=== PATIENT | female | born 1945 | race Caucasian/White ===

== ENCOUNTER 2017-11-04 02:14 | Emergency (ER) | payer MEDICARE, OTHER ==
[~2017-11-04] VITALS: Ht 152.4 cm; Wt 61.2 kg
[~2017-11-04 02:14] MED LIST: ANASTROZOLE1 MG PO; ASPIR 8181 M1; BENICAR20 MG PO; CRESTOR10 MG PO; PREDNISONE 10 M10 MG PO
[2017-11-04] MEDS ORDERED: CENTRUM SILVER1 EAC4 (02:30)
[2017-11-04] MEDS ORDERED: LIPITOR 20 MG T20 M1 (02:30)
[2017-11-04] MEDS ORDERED: VITAMIN D1000 UNI1 (02:31)
[2017-11-04] MEDS ORDERED: SINGULAIR 10 MG10 M1 (02:31)
[2017-11-04] MEDS ORDERED: TYLENOL325 MG (02:32)
[2017-11-04 03:31] LABS: URINE BILIRUBIN NEGATIVE (Negative); URINE BLOOD NEGATIVE (Negative); URINE CLARITY CLEAR; URINE COLOR YELLOW; URINE GLUCOSE-RANDOM NEGATIVE (Negative); URINE KETONES NEGATIVE (Negative); URINE LEUKOCYTES-REFLEX 1+ (Negative); URINE NITRITE-REFLEX NEGATIVE (Negative); URINE PROTEIN NEGATIVE (Negative); URINE UROBILINOGEN 0.2 E.U./dl (0.2-1.0)
[2017-11-04 03:59] LABS: SQUAMOUS >10 Many /LPF (0-3)
[2017-11-04 04:00] LABS: CASTS None Seen /LPF (None Seen); CRYSTALS None Seen /LPF (None Seen); URINE RBC 0-2 Rare /HPF (0-2); URINE WBC-REFLEX 6-15 Few /HPF (0-5)
[2017-11-04] MEDS ORDERED: ZOFRAN ODT4 MG PO (04:05)
[2017-11-04] MEDS ORDERED: KEFLEX500 M1 PO (04:05)
[2017-11-04 04:13] VITALS: BP 170/91
--- NOTE | 2017-11-04 17:38 | EKG ---
[place] [address] ELECTROCARDIOGRAM REPORT Name: CALLUM SOTO Tab Room: [facility]#: [id number] Admission: 11/04/17 Attend Phys: Discharge: 11/04/17 Date of : 49 Report #: [id number] THIS REPORT FOR: //name// [facility] ED Test Date: 2017-11-04 Test Time: 02:23:09 Pat Name: CALLUM SOTO Department: Room: Gender: F X Ray Operator: LEE Gee : 1945 Requested By: Dipti Hoffman Order Number: [id number] MD: Andrei Collins Measurements Intervals [place] Rate: 96 P: 73 NH: 124 QRS: -3 QRSD: 140 T: 59 QT: 333 QTc: 421 Interpretive Statements Sinus rhythm Probable left atrial enlargement Nonspecific ST T wave abnormalities No previous ECG available for comparison Electronically Signed On 11-04-2017 17:38:23 [employer]GETABLE TE[employer] by Andrei Collins [email or web address] <ELECTRONICALLY SIGNED> By: Andrei Collins MD, [facility] 11/04/17 1738 0223 2 Andrei Collins MD, FACC /EPI
== END 2017-11-04 04:13 | disposition home or self-care (01) ==
LOC: M.ERS 02:14
PROVIDERS: Emergency Medicine
DX: R11.0 Nausea (principal); R05 Cough; R42 Dizziness and giddiness; I10 Essential (primary) hypertension; Z90.710 Acquired absence of both cervix and uterus; Z85.3 Personal history of malignant neoplasm of breast

== ENCOUNTER → 2018-07-12 | Outpatient (CLI) | payer MEDICARE, OTHER ==
[~2018-07-12] MED LIST changes: +CENTRUM SILVER1 EAC4; +KEFLEX500 M1 PO; +LIPITOR 20 MG T20 M1; +SINGULAIR 10 MG10 M1; +TYLENOL325 MG; +VITAMIN D1000 UNI1; +ZOFRAN ODT4 MG PO
== END ==
LOC: M.LAB 09:15
PROVIDERS: Nurse Practitioner Adult Health
DX: R10.32 Left lower quadrant pain (principal); I10 Essential (primary) hypertension; Z90.710 Acquired absence of both cervix and uterus; Z85.3 Personal history of malignant neoplasm of breast; Z86.010 Personal history of colon polyps; Z79.899 Other long term (current) drug therapy